=== PATIENT | male | born 1980 | race Caucasian/White ===

== ENCOUNTER 2020-01-12 07:50 | Emergency (ER) | payer OTHER ==
[2020-01-12 07:58] VITALS: BP 129/81; PULSE 81; TEMP 98; BMI 25.6
[2020-01-12] MEDS ORDERED: KETOROLAC TROMETHAMINE 30 MG/1 ML VIAL IM ONE (08:09)
[2020-01-12] MEDS ORDERED: diazePAM 5 MG TABLET PO ONE (08:09)
[2020-01-12] MEDS ORDERED: KETOROLAC TROMETHAMINE 30 MG/1 ML VIAL ONE (08:13)
[2020-01-12] MEDS ORDERED: diazePAM 5 MG TABLET ONE (08:14)
--- NOTE | 2020-01-12 08:15 | PDOC ---
History of Present Illness - General Chief Complaint: Back Pain Stated Complaint: BACK PAIN/YFD Time Seen by Provider: 01/12/20 08:00 History Source: Patient Exam Limitations: No Limitations - History of Present Illness Initial Comments: 01/12/20 08:10 39-year-old male history of hypertension, depression, anxiety, low back pain in past years from injuries presents complaining of right-sided low back pain radiating laterally to right knee status post twisting injury while at work. 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 Denies striking the ground, ankle pain, hip pain, knee pain, head injury, hematuria, urinary incontinence, bowel incontinence or any other complaint. Patient did not take any pain medication today. ROS: as above PE: GENERAL: well-appearing, NAD HEAD: NCAT EYES: Pupils equal, round and reactive to light, sclera anicteric, conjunctiva clear ENT: pharynx: no erythema, no exudate, uvula midline NECK: supple CHEST: nontender RESP: clear, no w/r/r CARDIO: rrr, no m/g/r ABD: +BS, soft, nontender, non distended BACK: no midline spinal ttp, no CVAT, R sided lumbar paraspinal tenderness to palpation EXTREMITIES: Normal range of motion, no edema NEUROLOGICAL: Normal speech, walking with slight limp, 5/5 strength and sensation SKIN: Warm, Dry 01/12/20 08:16 01/12/20 08:17 Is this a multiple visit Asthma Patient?: No Past History - Medical History Allergies/Adverse Reactions: Allergies Allergy/AdvReac Type Severity Reaction Status Date / Time sulfur [From Sulfur-8] Allergy Verified 01/12/20 07:59 Home Medications: Ambulatory Orders Meclizine HCl [Antivert] 25 mg PO TID #21 tablet 08/21/11 Olmesartan Medoxomil [Benicar] 20 mg PO DAILY 08/21/11 Methocarbamol 750 mg PO TID PRN 4 Days #12 tablet 01/12/20 COPD: No HTN: Yes (on meds) - Immunization History Td Vaccination: Yes Immunization Up to Date: Yes - Psycho-Social/Smoking History Smoking Status: No Smoking History: Never smoked Have you smoked in the past 12 months: No Number of Cigarettes Smoked Daily: 0 Cigars Per Day: 0 Information on smoking cessation initiated: No - Substance Abuse Hx (Audit-C & DAST Scrn) How often the patient has a drink containing alcohol: Never Score: In Men: 4 or > Positive; In Women: 3 or > Positive: 0 Screen Result (Pos requires Nsg. Audit-10AR): Negative In the last yr the pt used illegal drug/Rx for NonMed reason: No Score: Yes response is considered Positive: 0 Screen Result (Positive result requires Nsg. DAST-10): Negative *Physical Exam - Vital Signs Last Vital Signs Temp Pulse Resp BP Pulse Ox 98 F 81 18 129/81 99 01/12/20 07:55 01/12/20 07:55 01/12/20 07:55 01/12/20 07:55 01/12/20 07:55 Medical Decision Making - Medical Decision Making 01/12/20 08:15 39-year-old male history of hypertension, depression, anxiety, low back pain in past years from injuries presents complaining of right-sided low back pain radiating laterally to right knee status post twisting injury while at work. 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 Denies striking the ground, ankle pain, hip pain, knee pain, head injury, hematuria, urinary incontinence, bowel incontinence or any other complaint. Patient did not take any pain medication today. No midline spinal tenderness to palpation No imaging required at this time Patient able to stand and slowly ambulate Toradol 30 mg IM Valium 5 mg p.o. Reassess 01/12/20 08:44 Advised patient to follow-up with the spine surgeon and physical therapist Take methocarbamol 750 mg 1 tablet every 8 hours as needed Alternate between warm and cold compresses over the area Return to ED if fever, chills, weakness, inability to walk, urinary or bowel incontinence or any concerning symptoms Discharge - Discharge Information Problems reviewed: Yes Clinical Impression/Diagnosis: Low back pain potentially associated with radiculopathy Condition: Stable Disposition: HOME - Admission No - Additional Discharge Information Prescriptions: Methocarbamol 750 mg PO TID PRN 4 Days #12 tablet PRN Reason: Back Pain - Follow up/Referral Referrals: Julián Odom [Primary Care Provider] - - Patient Discharge Instructions Additional Instructions: follow-up with the spine surgeon and physical therapist Take methocarbamol 750 mg 1 tablet every 8 hours as needed Alternate between warm and cold compresses over the area Return to ED if fever, chills, weakness, inability to walk, urinary or bowel incontinence or any concerning symptoms - Post Discharge Activity
--- OUTSIDE RECORDS SUMMARY | 2020-01-12 08:30 | XMS ---
:1980 Author Organization [facility] Care Team Providers Name Role Phone ED STAFF PHYSICIAN, STAFF Unavailable Unavailable ED STAFF PHYSICIANGARRET Unavailable Unavailable Re-disclosure Warning The records that you are about to access may contain information from federally- assisted alcohol or drug abuse programs. If such information is present, then the following federally mandated warning applies: This information has been disclosed to you from records protected by federal confidentiality rules (42 CFR part 2). The federal rules prohibit you from making any further disclosure of this information unless further disclosure is expressly permitted by the written consent of the person to whom it pertains or as otherwise permitted by 42 CFR part 2. A general authorization for the release of medical or other information is NOT sufficient for this purpose. The Federal rules restrict any use of the information to criminally investigate or prosecute any alcohol or drug abuse patient.The records that you are about to access may contain highly sensitive health information, the redisclosure of which is protected by Article 27-F of the [facility] Public Health law. If you continue you may haveaccess to information: Regarding HIV / AIDS; Provided by facilities licensed or operated by the [facility] Office of Mental Health; or Provided by the [facility] Office for People With Developmental Disabilities. If such information is present, then the following [facility] mandated warning applies: This information has been disclosed to you from confidential records which are protected by state law. State law prohibits you from making any further disclosure of this information without the specific written consent of the person to whom it pertains, or as otherwise permitted by law. Any unauthorized further disclosure in violation of state law may result in a fine or longterm sentence or both. A general authorization for the release of medical or other information is NOT sufficient authorization for further disclosure. Encounters Encounter Providers Location Date Indications Data Source(s ) Emergency Attender: [facility] ED H 06/21/2019 [facility] STAFF 08:31:00 PM EDT Medical C enter PHYSICIANAttender: - 06/22/2019 STAFF ED STAFF 01:24:00 AM EDT PHYSICIANAdmitter: [facility] STAFF PHYSICIAN Patient discharged. Emergency H 01/27/2019 11:31:00 AM EDT - 019 [facility] 12:28:00 PM EDT Patient discharged. Medications Medication Brand Start Product Dose Route Administrative Pharmacy [facility] Indications Reaction Description Data Name Date Form Instructions Instructions Source(s) Cyclobenzap cyclob 1 complet [facility] rine enzapr [facility] hydrochlori ine 10 Medica l de 10 MG mg Center Oral Tablet Tablet cyclobenzap , rine 10 mg Ordere Tablet, d By: Ordered By: Joey Wood FNPDirectio re, ns: 1 FNPDir tablet oral ection three times s: 1 a day PRN tablet pain-modera oral te three times a day PRN pain-m oderat e Ibuprofen ibupro 1 complet [facility] 800 MG Oral fen [facility] Tablet 800 mg Medical ibuprofen Tablet Center 800 mg Direct TabletDirec ions: tions: 1 1 tablet oral tablet every eight oral hours PRN every pain-modera eight te hours PRN pain-m oderat e Insurance Providers Payer name Policy type Policy ID Covered Covered republican's Policy P pablo / Coverage republican ID relationship to [facility] Inf ormation type serna PMA Management [id number] SP [id number] Silke [employer]OM[employer] RISK [id number] SP [id number] MANAGEMENT [employer] [id number] SP [id number] DEPT. [employer] RISK O DOA [id number] DOA [id number] MANAGEMENT O POMCO RISK O DOA 3 09 01 DOA 3 2019 MANAGEMENT 2020 [place] [id number] 1 [id number] Plan [facility] VISION RISK O ACC [id number] 01 ACC 1 0 16 19 [employer] Problems, Conditions, and Diagnoses Code Display Name Description Problem Type Effective Data Sour ce(s) Dates M54.5 Low back pain LOW BACK PAIN Diagnosis 06/21/2019 [facility] [place] [facility] 08:31:00 PM [facility] Cent[facility] EDT M54.9 Dorsalgia, DORSALGIA, Diagnosis 06/21/2019 [place] unspecified UNSPECIFIED 08:31:[address] EDT Y99.9 Unspecified UNSPECIFIED Diagnosis 01/27/2019 [place] external cause EXTERNAL CAUSE 11:31:00 AM Medic al Center status STATUS EDT Y92.[address] Diagnosis 01/27/2019 [place] or not applicable OR NOT APPLICABLE 11:31:00 AM Medical Center EDT Y93.9 Activity, ACTIVITY, Diagnosis 01/27/2019 [place] unspecified UNSPECIFIED 11:31:[address] EDT X50.0XXA Overexertion from OVEREXERTION FROM Diagnosis 01/27/2019 [place] strenuous movement STRENUOUS 11:31:00 AM [facility] Center or load, initial MOVEMENT OR LOAD, EDT encounter INIT S39.012A Strain of muscle, STRAIN OF MUSCLE, Diagnosis 01/27/2019 [place] fascia and tendon FASCIA AND TENDON 11:31:00 AM Medical Center of lower back, OF LOWER BACK, EDT initial encounter INIT Social History Code Duration Value Status Description Data Source(s ) Smoking 06/21/2019 Denies Ever completed Denies Ever Smoked [facility] [place] 09:16:00 PM EDT Smoked Medical C enter Smoking 06/21/2019 Denies Ever completed Denies Ever Smoked [facility] [place] 08:55:00 PM EDT Smoked Medical C enter Smoking 06/21/2019 Denies Ever completed Denies Ever Smoked [facility] [place] 08:45:00 PM EDT Smoked Medical C enter Smoking 01/27/2019 Denies Ever completed Denies Ever Smoked [place] 12:03:00 PM EDT Smoked Medical C enter Smoking 01/27/2019 Denies Ever completed Denies Ever Smoked [place] 11:45:00 AM EDT Smoked Medical C enter Vital Signs ID Date Data Source UNK Name Value Range Interpretation Code Description Data Source(s) Body temperature 36.668718 36.501753 [facility] Respiratory rate 18 /min 18 /min [facility] Oxygen saturation 98 % 98 % [facility] Arterial blood [facility] Center by Pulse oximetry Heart rate 67 /min 67 /min [facility] Diastolic blood 88 mm[Hg] 88 mm[Hg] [facility] pressure [facility] Systolic blood 149 mm[Hg] 149 mm[Hg] [facility] Body temperature 36.391440 36.770361 [facility] Respiratory rate 17 /min 17 /min [facility] Oxygen saturation 99 % 99 % [facility] Arterial blood [facility] Center by Pulse oximetry Heart rate 80 /min 80 /min [facility] Diastolic blood 78 mm[Hg] 78 mm[Hg] [facility] Systolic blood 121 mm[Hg] 121 mm[Hg] [facility] Body weight 94.220186 kg 94.138413 kg [facility] Body temperature 36.650813 36.186017 [facility] Respiratory rate 16 /min 16 /min [facility] Oxygen saturation 98 % 98 % [facility] Arterial blood [facility] by Pulse oximetry Heart rate 68 /min 68 /min [facility] Body height 182.210572 182.677105 cm [facility] Diastolic blood 94 mm[Hg] 94 mm[Hg] [facility] Systolic blood 148 mm[Hg] 148 mm[Hg] [facility] Body mass index 28.1 kg/m2 28.1 kg/m2 [facility] (BMI) [Ratio] [facility] Patient Treatment Plan of Care Planned Activity Planned Date Details Description Data Source (s) Cyclobenzaprine hydrochloride [facility] 10 MG Oral Tablet [place] Ibuprofen 800 MG Oral Tablet [facility]
== END 2020-01-12 08:53 | disposition home or self-care (01) ==
LOC: JER 07:50
PROC: 3E0233Z Introduction of Anti-inflammatory into Muscle, Percutaneous Approach (ICD-10-PCS; principal; 2020-01-12)
DX: M54.5 Low back pain (principal)
CPT/HCPCS: 99284-25

== ENCOUNTER 2021-09-18 09:22 | Emergency (ER) | payer OTHER ==
[2021-09-18 09:35] VITALS: BP 113/76; PULSE 66; TEMP 97.9; BMI 26.0
[2021-09-18] MEDS ORDERED: KETOROLAC TROMETHAMINE 30 MG/1 ML VIAL IM ONE (09:46)
== END 2021-09-18 10:12 | disposition home or self-care (01) ==
LOC: JERFT 09:22
PROC: 3E023GC Introduction of Other Therapeutic Substance into Muscle, Percutaneous Approach (ICD-10-PCS; principal; 2021-09-18)
DX: S46.912A Strain of unspecified muscle, fascia and tendon at shoulder and upper arm level, left arm, initial encounter (principal); X50.0XXA Overexertion from strenuous movement or load, initial encounter
CPT/HCPCS: 73030-TC-LT-FY; 99284-25